=== PATIENT | male | born 2000 | race Caucasian/White ===

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

== ENCOUNTER 2021-01-01 08:50 | Emergency (ER) | payer BC ==
[~2021-01-01] VITALS: Ht 177.8 cm; Wt 90.0 kg
[~2021-01-01 08:50] MED LIST: MUCINEX600 MG PO; NAPROSYN500 MG PO
[2021-01-01 09:04] VITALS: Ht 177.8 cm; Wt 90.0 kg
[2021-01-01 09:24] LABS: BASOPHILS 0.1 % (0-2); EOSINOPHILS 0.9 % (0-7); HEMATOCRIT 41.6 % (42.0-54.0); HEMOGLOBIN 13.8 g/dL (13.5-17.5); LYMPHOCYTES 5.7 % (15-50); MCH 27.9 pg (26.0-34.0); MCHC 33.1 g/dL (31.0-37.0); MCV 84.1 fL (80.0-100.0); MEAN PLATELET VOLUME 7.9 fL (7.4-10.4); MONOCYTES 4.2 % (2-11); NEUTROPHILS 89.1 % (40-80); RBC 4.94 10x6/uL (4.20-6.10); RDW 12.1 % (11.5-14.5); WBC 15.2 10x3/uL (4.8-10.8)
[2021-01-01 09:30] LABS: BILIRUBIN NEGATIVE (NEGATIVE); KETONE LARGE mg/dL (NEGATIVE); NITRITE NEGATIVE (NEGATIVE); UROBILINOGEN NORMAL mg/dL (< 2)
[2021-01-01 09:31] LABS: BACTERIA MODERATE HPF (NONE SEEN); SQUAMOUS EPITHELIAL 0-5 HPF (0-4); WHITE CELLS - URINE 0-5 HPF (0-1)
[2021-01-01 09:36] LABS: PLATELET COUNT 338 10x3/uL (130-400)
[2021-01-01 09:50] LABS: CALC OSMOLALITY 282 mosm/kg (275-300); CARBON DIOXIDE 28.7 mmol/L (21.0-32.0); CHLORIDE - SERUM 100 mmol/L (98-107); CREATININE - SERUM 1.1 mg/dL (0.6-1.3); GLUCOSE 114 mg/dL (74-106); POTASSIUM - SERUM 3.8 mmol/L (3.5-5.1); SODIUM 141 mmol/L (136-145); UREA NITROGEN 14 mg/dL (7-18); eGFR NON AFRICAN AMERICAN > 90 mL/min (90-120)
[2021-01-01 09:54] LABS: ALBUMIN 4.2 g/dL (3.4-5.0); ALKALINE PHOSPHATASE 75 U/L (30-120); ALT (SGPT) 27 U/L (10-68); BILIRUBIN - TOTAL 0.96 mg/dL (0.2-1.3); PROTEIN - SERUM 7.9 g/dL (6.4-8.2)
[2021-01-01] MEDS ORDERED: PHENERGAN25 M1 PO (11:15)
[2021-01-01] MEDS ORDERED: PROTONIX40 MG PO (11:15)
[2021-01-01 11:56] VITALS: BP 122/56
== END 2021-01-01 11:57 | disposition home or self-care (01) ==
LOC: D.ER 08:50
PROVIDERS: Emergency Medicine
DX: R11.2 Nausea with vomiting, unspecified (principal); K21.9 Gastro-esophageal reflux disease without esophagitis

== ENCOUNTER 2021-01-04 11:05 | Emergency (ER) | payer BC ==
[~2021-01-04] VITALS: Ht 177.8 cm; Wt 90.9 kg
[~2021-01-04 11:05] MED LIST changes: +PHENERGAN25 M1 PO; +PROTONIX40 MG PO
[2021-01-04 11:08] VITALS: BP 121/61; Ht 177.8 cm; Wt 90.9 kg
[2021-01-04] MEDS ORDERED: PEPCID40 MG PO (11:11)
[2021-01-04] MEDS ORDERED: PHENERGAN25 M1 PO (11:12)
[2021-01-04] MEDS ORDERED: CEPHALEXIN500 M1 PO (11:12)
[2021-01-04 12:07] LABS: BASOPHILS 0.4 % (0-2); EOSINOPHILS 0.5 % (0-7); HEMATOCRIT 36.1 % (42.0-54.0); HEMOGLOBIN 12.3 g/dL (13.5-17.5); LYMPHOCYTES 6.5 % (15-50); MCH 28.5 pg (26.0-34.0); MCHC 34.2 g/dL (31.0-37.0); MCV 83.4 fL (80.0-100.0); MEAN PLATELET VOLUME 7.5 fL (7.4-10.4); MONOCYTES 2.7 % (2-11); NEUTROPHILS 89.9 % (40-80); PLATELET COUNT 407 10x3/uL (130-400); RBC 4.33 10x6/uL (4.20-6.10); RDW 12.5 % (11.5-14.5); WBC 12.9 10x3/uL (4.8-10.8)
[2021-01-04 12:19] LABS: CALC OSMOLALITY 280 mosm/kg (275-300); CALCIUM 8.4 mg/dL (8.5-10.1); CARBON DIOXIDE 29.3 mmol/L (21.0-32.0); CHLORIDE - SERUM 102 mmol/L (98-107); GLUCOSE 108 mg/dL (74-106); POTASSIUM - SERUM 3.1 mmol/L (3.5-5.1); SODIUM 141 mmol/L (136-145); UREA NITROGEN 11 mg/dL (7-18); eGFR NON AFRICAN AMERICAN > 90 mL/min (90-120)
[2021-01-04] MEDS ORDERED: STERAPRED DS 1010 MG PO (12:27)
[2021-01-04] MEDS ORDERED: PROAIR HFA8.5 G1 INH (12:27)
[2021-01-04 12:34] LABS: ALBUMIN 3.1 g/dL (3.4-5.0); ALKALINE PHOSPHATASE 75 U/L (30-120); ALT (SGPT) 26 U/L (10-68); BILIRUBIN - TOTAL 0.51 mg/dL (0.2-1.3); PROTEIN - SERUM 7.9 g/dL (6.4-8.2)
[2021-01-04 12:54] LABS: SARS-CoV-2 ANTIGEN NEGATIVE- SARS-COV-2 (NEGATIVE)
== END 2021-01-04 13:15 | disposition home or self-care (01) ==
LOC: D.ER 11:05
PROVIDERS: Student in an Organized Health Care Education/Training Program
DX: N43.3 Hydrocele, unspecified (principal); J45.909 Unspecified asthma, uncomplicated; I86.1 Scrotal varices; K21.9 Gastro-esophageal reflux disease without esophagitis; Z72.0 Tobacco use